=== PATIENT | male | born 1990 | race Caucasian/White ===

== ENCOUNTER 2020-03-01 16:52 | Emergency (ER) | payer OTHER, SELFPAY ==
[2020-03-01 18:31] VITALS: BP 146/80; PULSE 70; RESP 19; TEMP 36.8; O2SAT 100; BMI 30.4
--- NOTE | 2020-03-01 18:38 | HMH.EDUTC ---
[facility] [place]: Acute frontal sinusitis Qualifiers: Recurrence: non-recurrent Qualified Code(s): J01.10 - Acute frontal sinusitis, unspecified Disposition: Home, Self-Care Condition on Discharge: Good Instructions: DI for Sinusitis Additional Instructions: You have been tested for COVID19. Please isolate yourself until test results are received. Prescriptions: predniSONE [Prednisone 20mg Tab] 20 mg PO BID 5 Days #10 tab Transmission Status: [facility] to [facility] Pseudoephedrine HCl [Sudafed 12 Hour 120mg Tab] 1 tab PO BID 10 Days #20 tab Transmission Status: Pending to [facility] Azithromycin [Z-Amaury 250mg Tab*] 250 mg PO UD DOSE PK #6 tab Transmission Status: Pending to [facility] Referrals: Marlo Abdalla MD [Primary Care Provider] - Time of Disposition: 18:43 Medical Decision Making - Kings Inquiry Pt receiving controlled substance: No Vital Signs: 03/01/20 18:31 Temperature 98.3 F Temperature Source Oral Pulse Rate [Right Brachial] 70 Respiratory Rate 19 Blood Pressure [Right Arm] 146/80 H Blood Pressure Mean [Right Arm] 102 Blood Pressure Source [Right Arm] Automatic Cuff Blood Pressure Position [Right Arm] Sitting 02 Sat by Pulse Oximetry 100 Oxygen Delivery Method Room Air [facility] [place] - General Stated complaint: soa, sinuses Time Seen by Provider: 03/01/20 18:39 Mode of Arrival: Ambulatory Source of Information: Patient Limitations: No Limitations Description of Symptoms (Recalled from Triage Doc. by RN): PATIENT CHEST CONGESTION, SOA, AND SINUS PRESSURE X 4 DAYS HEENT Symptoms (Recalled from RN notes): Yes Resp Symptoms (Recalled from RN notes): No Skin Symptoms (Recalled from RN notes): No MS Symptoms (Recalled from RN notes): No Functional Status (Recalled from RN notes): WNL - History of Present Illness Provider Complaint: Chest congestion, SOA, sinus drainage and pressure X 3-4 days. Some nausea, but no vomiting or diarrhea. Some shortness of breath and dizziness. No fever. 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 Onset (ago): day(s) (3) Location: chest Relieving factors: none Exacerbating factors: none Associated symptoms: cough Treatments prior to arrival: none - Related Data Previous Rx's Medication Instructions Recorded Azithromycin [Z-Amaury 250mg Tab*] 250 mg PO UD DOSE PK #6 tab 03/01/20 Pseudoephedrine HCl [Sudafed 12 1 tab PO BID 10 Days #20 tab 03/01/20 Hour 120mg Tab] predniSONE [Prednisone 20mg 20 mg PO BID 5 Days #10 tab 03/01/20 Tab] Allergies Allergy/AdvReac Type Severity Reaction Status Date / Time Penicillins [PENICILLINS] Allergy Mild Unverified 04/27/17 14:49 - Worker's Comp Is this a Worker's Comp case?: No [facility] History - Hepatitis A Screen Drug use history?: No High risk sexual behaviors?: No History of sexually transmitted infection?: No Currently employed?: No Childcare worker?: No Do you have indoor plumbing?: Yes Do you have electricity?: Yes Attestation statement:: This patient has been screened for Hepatitis A risk factors. I have reviewed the patient's past medical history: Yes - Social History Alcohol Intake: never Occupational Status: other ROS Obtained: Yes All systems reviewed & no additional complaints - Constitutional Constitutional: Denies body ache, Denies chills, Denies fever(s), Reports headache(s) - Eyes Eyes: Denies eye discharge - ENT Ears, Nose, Mouth, and Throat: Reports dizziness, Reports otalgia, Reports sinus pain, Reports sore throat - Cardiovascular Cardiovascular: Reports dyspnea - Respiratory Respiratory: Yes cough, Yes dyspnea - Gastrointestinal Gastrointestingal: Reports: nausea Physical Exam - General General appearance: alert, in no apparent distress - Head Head exam: atraumatic, normocephalic, normal inspection - Eye Eye exam: Present: normal appearance, PERRL, EOMI - ENT ENT
[2020-03-01 19:28] VITALS: BP 146/80; PULSE 70; RESP 19; TEMP 36.8; O2SAT 100
== END 2020-03-01 19:30 | disposition home or self-care (01) ==
PROVIDERS: Emergency Provider Physician Assistant; PCP Family Medicine
DX: Z20.828 Contact with and (suspected) exposure to other viral communicable diseases (principal); J01.10 Acute frontal sinusitis, unspecified
CPT/HCPCS: 99201; U0003

== ENCOUNTER 2020-03-20 16:05 | Emergency (ER) | payer OTHER, SELFPAY ==
[2020-03-20 16:15] VITALS: BP 113/52; PULSE 73; RESP 18; TEMP 36.7; O2SAT 99; BMI 30.4
--- NOTE | 2020-03-20 16:23 | HMH.EDUTC ---
[facility] [place] Clinical Impression: Exposure to COVID-19 virus, Abscess of upper back excluding scapular region Disposition: Home, Self-Care Condition on Discharge: Good Instructions: Boil, Preventing the Spread of Coronavirus Discharge Instructions Additional Instructions: Drink plenty of fluids. Take tylenol for pain or fever. Take the medications as directed. Follow up with your regular doctor. GO TO THE ER FOR ANY WORSENING SYMPTOMS Take the antibiotics as directed for the inflamed cyst on your back. I put in a referral to a surgeon to get it removed. You should call his office and get an appointment. Prescriptions: Doxycycline Hyclate [Doxycycline 100mg Capsule] 100 mg PO Q12 10 Days #20 cap Transmission Status: Received by [facility] Referrals: Marlo Abdalla MD [Primary Care Provider] - Alf Jacobson MD [Staff Physician] - Forms: Work/School Release Time of Disposition: 16:41 Medical Decision Making - Medical Records Medical records reviewed: No: I reviewed the patient's medical records. - Kings Inquiry Pt receiving controlled substance: No Vital Signs: 03/20/20 16:15 03/20/20 17:02 Temperature 98.1 F 98.1 F Temperature Source Oral Oral Pulse Rate 73 Pulse Rate [Radial] 73 Respiratory Rate 18 18 Blood Pressure 113/52 L Blood Pressure [Right Arm] 113/52 L Blood Pressure Mean [Right Arm] 72 Blood Pressure Source Automatic Cuff Blood Pressure Source [Right Arm] Automatic Cuff Blood Pressure Position Sitting Blood Pressure Position [Right Arm] Sitting 02 Sat by Pulse Oximetry 99 Oxygen Delivery Method Room Air Room Air Orders (Tests/Meds): ORDERS Category Date Time Status Covid-19 Nasal PCR Sendout [facility] 03/20/20 16:12 Received [facility] [place] - General Stated complaint: WANTS COVID TEST Time Seen by Provider: 03/20/20 16:23 Mode of Arrival: Ambulatory Source of Information: Patient Limitations: No Limitations Description of Symptoms (Recalled from Triage Doc. by RN): COVID test, has a spot on his left shoulder he would like to have checked. HEENT Symptoms (Recalled from RN notes): No Resp Symptoms (Recalled from RN notes): No Skin Symptoms (Recalled from RN notes): Yes MS Symptoms (Recalled from RN notes): No Functional Status (Recalled from RN notes): wnl - History of Present Illness Provider Complaint: He states that he needs to be tested for covid due to being exposed a few days ago. He denies any symptoms at this time. Also, he has recurrent cyst on the back of his left shoulder. It has been there for a long time, but it periodically gets inflamed. It has been swollen and sore around it this time for the past 1 week. - Related Data Previous Rx's Medication Instructions Recorded Azithromycin [Z-Amaury 250mg Tab*] 250 mg PO UD DOSE PK #6 tab 03/01/20 Pseudoephedrine HCl [Sudafed 12 1 tab PO BID 10 Days #20 tab 03/01/20 Hour 120mg Tab] predniSONE [Prednisone 20mg 20 mg PO BID 5 Days #10 tab 03/01/20 Tab] Doxycycline Hyclate [Doxycycline 100 mg PO Q12 10 Days #20 cap 03/20/20 100mg Capsule] Allergies Allergy/AdvReac Type Severity Reaction Status Date / Time Penicillins [PENICILLINS] Allergy Mild Unverified 04/27/17 14:49 - Worker's Comp Is this a Worker's Comp case?: No [facility] History - Hepatitis A Screen Drug use history?: No High risk sexual behaviors?: No History of sexually transmitted infection?: No Currently employed?: No Childcare worker?: No Do you have indoor plumbing?: Yes Do you have electricity?: Yes Attestation statement:: This patient has been screened for Hepatitis A risk factors. I have reviewed the patient's past medical history: Yes - Social History Smoking Status: Current every day smoker Tobacco Type: cigarettes # Packs/Day (cigarettes): 1 Alcohol Intake: never Occupational Status: employed ROS Obtained: Yes All systems reviewed & no additional complaints - Const
[2020-03-20 17:02] VITALS: BP 113/52; PULSE 73; RESP 18; TEMP 36.7; O2SAT 99
[2020-03-22 15:45] LABS: Covid-19 Nasal PCR Sendout Lex Not Detected
== END 2020-03-20 17:03 | disposition home or self-care (01) ==
PROVIDERS: Emergency Provider Nurse Practitioner Family; PCP Family Medicine
DX: Z20.828 Contact with and (suspected) exposure to other viral communicable diseases (principal); L02.212 Cutaneous abscess of back [any part, except buttock and flank]; F17.210 Nicotine dependence, cigarettes, uncomplicated
CPT/HCPCS: 99201; U0004

== ENCOUNTER 2020-04-03 19:00 | Emergency (ER) | payer OTHER, SELFPAY ==
[2020-04-03 19:01] VITALS: BP 139/68; PULSE 95; RESP 16; TEMP 36.7; O2SAT 100; BMI 29.5
--- NOTE | 2020-04-03 19:38 | HMH.EDGENADL ---
ED Disposition Clinical Impression: Abscess of skin or subcutaneous tissue Qualifiers: Site of cutaneous abscess: other site Qualified Code(s): L02.818 - Cutaneous abscess of other sites Disposition: Home, Self-Care Condition on Discharge: Good Instructions: DI for Skin Abscess Additional Instructions: You have been evaluated for an abscess, drained. This is likely an infected sebaceous cyst. You will need to have cyst removed. Please follow-up with general surgery or dermatology as soon as available. Take antibiotics as prescribed. Return to the emergency department if you have any new or worsening symptoms, fevers, vomiting, other concerns. Referrals: Marlo Abdalla MD [Primary Care Provider] - Time of Disposition: 19:44 - Critical Care Critical Care Time: No Attestation: On 04/03/20, the high probability of a clinically significant, sudden or life threatening deterioration of the following system(s) required my full and direct attention, intervention and personal management. The time I documented below is in addition to time spent performing reported procedures but includes the following listed in this critical care notation. Medical Decision Making - Medical Records Medical records reviewed: Yes: I reviewed the patient's medical records. - Kings Inquiry Pt receiving controlled substance: No Vital Signs: 04/03/20 19:01 Temperature 98.1 F Temperature Source Oral Pulse Rate [Left Radial] 95 H Respiratory Rate 16 Blood Pressure [Right Arm] 139/68 Blood Pressure Mean [Right Arm] 91 Blood Pressure Source [Right Arm] Automatic Cuff Blood Pressure Position [Right Arm] Sitting 02 Sat by Pulse Oximetry 100 Oxygen Delivery Method Room Air Orders (Tests/Meds): ED MEDICATIONS Discontinued Medications Generic Name Dose Route Start Last Admin Trade Name Pippa PRN Reason Stop Dose Admin Lidocaine HCl 10 ml 04/03/20 19:11 Lidocaine 1% 10ml Mdv SQ 04/03/20 19:12 ONCE ONE Medical Decision Narrative: In summary this is a previously healthy 29-year-old male presenting to the emergency department with an area of painful swelling medial to his left scapula. Appears consistent with a sebaceous cyst. However there is now pain and erythema and induration, concerning for superimposed infection. Area anesthetized with 1% lidocaine. Aspirated. Removal of 10 cc of purulent material. Incision made at the area of greatest fluctuance, no additional purulence expressed. No loculations found. Patient given Bactrim. He has a prescription at the pharmacy for continued antibiotics. Instructed that he likely has a sebaceous cyst that will need removal. He should follow-up with general surgery or dermatology as soon as available. Given return precautions. Stable for discharge. General Adult HPI - General Chief complaint: Skin/Abscess/Foreign Body Stated complaint: Cyst on back Time Seen by Provider: 04/03/20 19:18 Mode of Arrival: Ambulatory Limitations: No Limitations Description of Symptoms (Recalled from ER Triage Doc. by RN): pt c/o a cyst on his upper back for the last 3 months. pt stated it has gotten more painful since last week. pt was seen in the [facility] and prescribed antibiotics but he has refused to take his medication pt stated i dont like medicine. i just want it cut open. pt denies any fever or chills at this time. - History of Present Illness HPI narrative: 29-year-old male presenting to the emergency department with a painful area of swelling near his left shoulder. Area is located medial to the scapula. It has been present for the last few months. Initially was a painless area of swelling. Over the last week has become swollen, painful. It is painful to the touch. He has pain with arm movement. Was evaluated at our urgent care where he was given a prescription for antibiotics 1 week ago, has been unable to get the prescription filled. No fevers, chills, nausea, vomiting.
[2020-04-03 19:49] VITALS: BP 121/73; PULSE 75; RESP 17; TEMP 36.8; O2SAT 98
== END 2020-04-03 19:58 | disposition home or self-care (01) ==
PROVIDERS: Emergency Provider Emergency Medicine; PCP Family Medicine
DX: L02.212 Cutaneous abscess of back [any part, except buttock and flank] (principal); F17.210 Nicotine dependence, cigarettes, uncomplicated; Z88.0 Allergy status to penicillin
CPT/HCPCS: 10060; 99282

== ENCOUNTER 2020-07-09 14:29 | Emergency (ER) | payer OTHER, SELFPAY ==
[2020-07-09 14:44] VITALS: BP 117/80; PULSE 86; RESP 19; TEMP 37.1; O2SAT 98; BMI 28.0
[2020-07-09 14:55] VITALS: BP 120/86; PULSE 81; RESP 16; TEMP 37.2
--- NOTE | 2020-07-09 15:14 | HMH.EDUTC ---
[facility] [place] Clinical Impression: Sinusitis Qualifiers: Sinusitis location: unspecified location Chronicity: unspecified Qualified Code(s): J32.9 - Chronic sinusitis, unspecified Disposition: Home, Self-Care Condition on Discharge: Good Instructions: Sinusitis, DI for Sinusitis, DI for Nausea -- Adult, DI for COVID-19 (Suspected or Confirmed ), Coronavirus Disease 2019 Additional Instructions: *Monitor Temp, Over the counter Motrin or Tylenol as directed/as needed Tylenol every 4 hours and Motrin every 6 hours (as long as your family doctor has told you that you can take it) for fever or pain. and straight to ER if unable to lower temp less than 101.0 after medication given *Warm salt water gargles may help to soothe the throat *Throat Lozenges *Warm fluids like tea with honey may help to soothe the throat *Sleep elevated *Humidifier/Vaporizer ? Avoid fruit juices, as these do not replace minerals and can actually increase diarrhea. ? Children and adults can use sports drinks to replenish electrolytes. Younger children and infants should use products formulated for children, like oral rehydration solutions. ? Eat food in small amounts and let your stomach recover. ? Get lots of rest. You may feel tired or weak. ? No greasy or fried foods for the next 24-48 hours BRAT diet Bananas Rice Apples and [place] ? Make sure to drink plenty of liquids ? Return if needed ? Straight to ER if any life threatening symptoms ? Zofran as prescribed ? Follow up with family doctor in the next 48-72 hours if no improvement or any worsening of symptoms Follow up IMMEDIATELY for new or worsening symptoms or no Noticeable improvement over the next 48-72 hours. 911 for difficulty breathing or swallowing You were tested for today for COVID19 your test result should be back in the next 24-48 hours, you may call to the [facility] to see if your test results are back in the next 48 hours [phone] [facility] hours are 9am-9pm You was given a handout with instructions for Self Quarantine and Self isolation for while you wait on test results and what to do if they are positive If you are positive the Health Dept will be contacting you also Prescriptions: Doxycycline Monohydrate [Doxycycline [place] 100mg Tab] 100 mg PO Q12 7 Days #14 tab Transmission Status: [facility] to [facility] Ondansetron [Zofran 4mg ODT] 4 mg PO TIDP PRN #10 tab PRN Reason: Nausea Transmission Status: [facility] Referrals: Marlo Abdalla MD [Primary Care Provider] - As needed Forms: Work/School Release Time of Disposition: 15:19 Medical Decision Making - Kings Inquiry Pt receiving controlled substance: No Kings was queried for this patient: No Vital Signs: 07/09/20 14:44 07/09/20 14:55 Temperature 98.8 F 99 F Temperature Source Oral Pulse Rate 81 Pulse Rate [Right] 86 Respiratory Rate 19 16 Blood Pressure 120/86 Blood Pressure [Right Arm] 117/80 Blood Pressure Mean [Right Arm] 92 Blood Pressure Source [Right Arm] Automatic Cuff Blood Pressure Position [Right Arm] Sitting 02 Sat by Pulse Oximetry 98 Oxygen Delivery Method Room Air Orders (Tests/Meds): ORDERS Category Date Time Status Covid-19 Nasal PCR ([facility]) Routine Lab 07/09/20 14:41 Received [facility] [place]PI - General Stated complaint: Nausea; previous fever Time Seen by Provider: 07/09/20 15:14 Mode of Arrival: Ambulatory Source of Information: Patient Limitations: No Limitations Description of Symptoms (Recalled from Triage Doc. by RN): pt has been nauseated for three days and febrile yesterday. HEENT Symptoms (Recalled from RN notes): No Resp Symptoms (Recalled from RN notes): No Skin Symptoms (Recalled from RN notes): No MS Symptoms (Recalled from RN notes): No Functional Status (Recalled from RN notes): na - History of Present Illness Provider Complaint: Patient states that he has been having sinus pain and pressure along with fever and nausea for severa
== END 2020-07-09 15:30 | disposition home or self-care (01) ==
PROVIDERS: Emergency Provider Nurse Practitioner; PCP Family Medicine
DX: Z20.822 Contact with and (suspected) exposure to COVID-19 (principal); J32.9 Chronic sinusitis, unspecified; F17.210 Nicotine dependence, cigarettes, uncomplicated; Z88.0 Allergy status to penicillin
CPT/HCPCS: 99202; G0463; U0003

== ENCOUNTER 2020-08-31 05:03 | Emergency (ER) | payer OTHER, SELFPAY ==
[2020-08-31 05:04] VITALS: BP 147/82; PULSE 84; RESP 16; TEMP 36.6; O2SAT 97; BMI 28.0
--- NOTE | 2020-08-31 05:38 | HMH.EDMCLR ---
ED Disposition Clinical Impression: Medical clearance for incarceration Disposition: Home, Self-Care Condition on Discharge: Good Instructions: DI for Alcohol Use Disorder Additional Instructions: call pcp for follow up Referrals: Marlo Abdalla MD [Primary Care Provider] - - Critical Care Critical Care Time: No Attestation: On 08/31/20, the high probability of a clinically significant, sudden or life threatening deterioration of the following system(s) required my full and direct attention, intervention and personal management. The time I documented below is in addition to time spent performing reported procedures but includes the following listed in this critical care notation. Medical Decision Making - Medical Records Medical records reviewed: Yes: I reviewed the patient's medical records. - Kings Inquiry Pt receiving controlled substance: No Vital Signs: 08/31/20 05:04 Temperature 97.9 F Temperature Source Oral Pulse Rate [Left Radial] 84 Respiratory Rate 16 Blood Pressure [Right Arm] 147/82 H Blood Pressure Mean [Right Arm] 103 Blood Pressure Source [Right Arm] Automatic Cuff Blood Pressure Position [Right Arm] Sitting 02 Sat by Pulse Oximetry 97 Oxygen Delivery Method Room Air Medical Clearance HPI - General Chief complaint: Medical Clearance Stated complaint: Medical Clearance Time Seen by Provider: 08/31/20 05:10 Mode of Arrival: Ambulatory Source of Information: Patient, Medical Record Limitations: No Limitations Description of Symptoms (Recalled from ER Triage Doc. by RN): Medical clearance for alcohol intoxication. Pt has no complaints reported to staff. Lab notified of request for blood draw. - History of Present Illness HPI Narrative: pt w/o specific c/o MD complaint: medical clearance requested Onset (ago): hour(s) Reason for Medical Clearance: intoxication Place: street Alleged Intoxication: Yes Traumatic Symptoms: denies traumatic injury Associated Symptoms: denies other symptoms Treatments Prior to Arrival: none Home medications: Home Medications Medication Instructions Recorded Confirmed No Known Home Medications 08/31/20 08/31/20 Allergies/Adverse reactions: Allergies Allergy/AdvReac Type Severity Reaction Status Date / Time Penicillins [PENICILLINS] Allergy Mild Verified 07/09/20 14:49 [facility] History - Hepatitis A Screen Drug use history?: No High risk sexual behaviors?: No History of sexually transmitted infection?: No Currently employed?: No Childcare worker?: No Do you have indoor plumbing?: Yes Do you have electricity?: Yes Attestation statement:: This patient has been screened for Hepatitis A risk factors. I have reviewed the patient's past medical history: Yes - Social History Smoking Status: Current every day smoker Tobacco Type: cigarettes # Packs/Day (cigarettes): 1 Alcohol Intake: never Occupational Status: employed ROS Obtained: Yes All systems reviewed & no additional complaints - Constitutional Constitutional: Denies fever(s) - Eyes Eyes: Denies change in vision - ENT Ears, Nose, Mouth, and Throat: Denies sore throat - Cardiovascular Cardiovascular: Denies chest pain - Respiratory Respiratory: Denies shortness of breath - Gastrointestinal Gastrointestingal: Denies: abdominal pain - Genitourinary Male Genitourinary: Denies flank pain - Musculoskeletal Musculoskeletal: Denies joint pain - Integumentary/Breasts Skin/Breast: Denies rash - Neurologic Neurologic: Denies focal weakness Physical Exam - General General appearance: alert - Head Head exam: normocephalic - Eye Eye exam: Present: PERRL, EOMI - ENT ENT exam: Present: mucous membranes moist - Neck Neck exam: Present: trachea midline - Respiratory Respiratory exam: Absent: respiratory distress - Cardiovascular Cardiovascular exam: Present: regular rate - Abdominal Exam Abdominal exam: Present: soft - Extremitie
[2020-08-31 05:50] VITALS: BP 135/83; PULSE 82; RESP 16; TEMP 36.6; O2SAT 99
== END 2020-08-31 05:51 | disposition home or self-care (01) ==
PROVIDERS: Emergency Provider Emergency Medicine; PCP Family Medicine
DX: F10.10 Alcohol abuse, uncomplicated (principal); F17.210 Nicotine dependence, cigarettes, uncomplicated; Z88.0 Allergy status to penicillin
CPT/HCPCS: 36415; 99282

== ENCOUNTER 2020-10-20 10:39 | Emergency (ER) | payer OTHER, SELFPAY ==
[2020-10-20 10:40] VITALS: BP 119/75; PULSE 78; RESP 19; TEMP 36.8; O2SAT 99; BMI 26.7
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
--- NOTE | 2020-10-20 11:47 | HMH.EDUTC ---
[facility] [place] Clinical Impression: Ankle sprain Qualifiers: Encounter type: initial encounter Involved ligament of ankle: other ligament Laterality: right Qualified Code(s): S93.491A - Sprain of other ligament of right ankle, initial encounter Disposition: Home, Self-Care Condition on Discharge: Good Instructions: How to Use Crutches, DI for Ankle Sprain, How To Perform RICE (Rest, Ice, Compress, Elevate), Ketorolac Additional Instructions: *No weight bearing RICE, Rest the extremity, Ice 15-20 minutes 3-4 times daily, Compress- wear the roberto wrap as discussed as much as possible to help reduce swelling and pain, Elevate the extremity when at rest *Walking boot is for support and help control swelling, Be sure that is not to tight but not to loose either Use Crutches to ambulate and move around *Elevate when resting *Torodol as prescribed for pain and inflamation NO IBUPROFEN with Torodol If need something more can take Tylenol in between doses of Ibuprofen to help Immediately follow up with your family doctor for new or worsening of symptoms, or no noticeable improvement over the next 3-5 days Call Orthopedic office on Wednesday for appointment with Dr Steven Straight to ER if any numbness or tingling in foot or feeling cold to the touch or any life threatening symptoms Prescriptions: Ketorolac Tromethamine [Toradol 10mg tablet] 10 mg PO Q6HP PRN #20 tab MDD 40mg/day PRN Reason: Moderate Pain Transmission Status: Received by [id number] Referrals: Marlo Abdalla MD [Primary Care Provider] - As needed Toribio Seaman MD [Staff Physician] - As needed (Call office tomorrow Morning for appoinment Dr Steven covering) Time of Disposition: 18:10 Medical Decision Making - Kings Inquiry Pt receiving controlled substance: No Kings was queried for this patient: No Vital Signs: 10/20/20 10:40 10/20/20 12:41 Temperature 98.3 F 98.3 F Temperature Source Oral Pulse Rate 78 Pulse Rate [Right Brachial] 78 Respiratory Rate 19 19 Blood Pressure 119/75 Blood Pressure [Right Arm] 119/75 Blood Pressure Mean [Right Arm] 89 Blood Pressure Source [Right Arm] Automatic Cuff Blood Pressure Position [Right Arm] Sitting 02 Sat by Pulse Oximetry 99 Oxygen Delivery Method Room Air Orders (Tests/Meds): ED MEDICATIONS Discontinued Medications Generic Name Dose Route Start Last Admin Trade Name Pippa PRN Reason Stop Dose Admin Ketorolac Tromethamine 60 mg 10/20/20 12:28 10/20/20 12:33 Ketorolac 60mg/2ml Vial IM 10/20/20 12:29 60 mg ONCE ONE Administration - Radiology Data #1 Image(s): Ankle Image Reviewed: Yes I reviewed the patient's radiology image soft tissue swelling no acute fracture #2 Image(s): Tib/Fib Image Reviewed: Yes I reviewed the patient's radiology image Soft tissue swelling no acute fracture - Physician Consults Physician Consulted: Dr Steven Time: 12:08 Reason -: Orthopedic Eval/Care Comment/Response: Spoke with Dr Steven and he viewed xrays Advised to place in walking boot RICE, Crutches and call office on Wednesday for appointment [facility] [place] - General Stated complaint: AO [id number] rolled ankle Time Seen by Provider: 10/20/20 11:47 Mode of Arrival: Ambulatory Source of Information: Patient Limitations: No Limitations Description of Symptoms (Recalled from Triage Doc. by RN): PATIENT STATES HE STEPPED OFF OF A CURB WRONG AND ROLLED HIS RIGHT ANKLE THIS MORNING AT APPROX 0900 HEENT Symptoms (Recalled from RN notes): No Resp Symptoms (Recalled from RN notes): No Skin Symptoms (Recalled from RN notes): No MS Symptoms (Recalled from RN notes): Yes Functional Status (Recalled from RN notes): WNL - History of Present Illness Provider Complaint: Patient states that he was walking and stepped off curb and rolled right ankle and right lower leg State that ever since he has been having swelling and pain in his right ankle and lower leg. - Related Da
[2020-10-20 12:41] VITALS: BP 119/75; PULSE 78; RESP 19; TEMP 36.8; O2SAT 99
== END 2020-10-20 12:55 | disposition home or self-care (01) ==
PROVIDERS: Emergency Provider Nurse Practitioner; PCP Family Medicine
DX: S93.491A Sprain of other ligament of right ankle, initial encounter (principal); X50.1XXA Overexertion from prolonged static or awkward postures, initial encounter; Y92.480 Sidewalk as the place of occurrence of the external cause; F17.210 Nicotine dependence, cigarettes, uncomplicated
CPT/HCPCS: 29515; 73590; 73610; 99202; G0463

== ENCOUNTER 2020-10-21 11:33 | Emergency (ER) | payer OTHER, SELFPAY ==
[2020-10-21 11:35] VITALS: BP 141/63; PULSE 69; RESP 18; TEMP 36.7; O2SAT 99; BMI 26.7
--- NOTE | 2020-10-21 12:10 | HMH.EDUTC ---
[facility] – [place] Dis[place] Clinical Impression: Right foot pain Disposition: Home, Self-Care Condition on Discharge: Serious Instructions: DI for Foot Fracture Additional Instructions: Rest the extremity, apply ice for 15 minutes as tolerated three or four times per day, Wear the roberto wrap for compression, Elevate the extremity as tolerated while you are resting. Take the medication that was prescribed yesterday for your pain. Follow up with Dr. Seaman (orthopedics) as already ordered. Follow up with your regular doctor. GO TO THE ER FOR ANY WORSENING SYMPTOMS Referrals: Marlo Abdalla MD [Primary Care Provider] - Time of Disposition: 12:19 Medical Decision Making - Medical Records Medical records reviewed: No: I reviewed the patient's medical records. - Kings Inquiry Pt receiving controlled substance: No Vital Signs: 10/21/20 11:35 10/21/20 12:16 Temperature 98.0 F 98.0 F Temperature Source Oral Pulse Rate 69 Pulse Rate [Left Brachial] 69 Respiratory Rate 18 18 Blood Pressure 141/63 H Blood Pressure [Left Arm] 141/63 H Blood Pressure Mean [Left Arm] 89 Blood Pressure Source [Left Arm] Automatic Cuff Blood Pressure Position [Left Arm] Sitting 02 Sat by Pulse Oximetry 99 Oxygen Delivery Method Room Air Orders (Tests/Meds): ED MEDICATIONS Discontinued Medications Generic Name Dose Route Start Last Admin Trade Name Pippa PRN Reason Stop Dose Admin Ketorolac Tromethamine 60 mg 10/21/20 12:10 10/21/20 12:14 Ketorolac 60mg/2ml Vial IM 10/21/20 12:11 60 mg ONCE ONE Administration [facility] [place] HPI - General Stated complaint: AO [id number] fall pain in foot Time Seen by Provider: 10/21/20 11:45 Mode of Arrival: Ambulatory Source of Information: Patient Limitations: No Limitations Description of Symptoms (Recalled from Triage Doc. by RN): PATIENT WAS SEEN IN [facility] YESTERDAY FOR INJURY TO RIGHT FOOT. HE STATES HE WOKE UP THIS MORNING AND STEPPED ON RIGHT FOOT WRONG AND FEEL. REQUESTING TORADOL SHOT HEENT Symptoms (Recalled from RN notes): No Resp Symptoms (Recalled from RN notes): No Skin Symptoms (Recalled from RN notes): No MS Symptoms (Recalled from RN notes): Yes Functional Status (Recalled from RN notes): WNL - History of Present Illness Provider Complaint: He originally injured his right foot yesterday. But, today when he got out of bed he forgot it was hurt, so he bore weight on it and now its hurting worse. He has not picked up his prescribed medication for pain from his pharmacy. He would like another shot of toradol now, then be allowed to go get his medication. - Related Data Previous Rx's Medication Instructions Recorded Ketorolac Tromethamine [Toradol 10 mg PO Q6HP PRN #20 tab MDD 10/20/20 10mg tablet] 40mg/day Allergies Allergy/AdvReac Type Severity Reaction Status Date / Time Penicillins [PENICILLINS] Allergy Mild Verified 07/09/20 14:49 - Worker's Comp Is this a Worker's Comp case?: No [facility] History - Hepatitis A Screen Drug use history?: No High risk sexual behaviors?: No History of sexually transmitted infection?: No Currently employed?: No Childcare worker?: No Do you have indoor plumbing?: Yes Do you have electricity?: Yes Attestation statement:: This patient has been screened for Hepatitis A risk factors. I have reviewed the patient's past medical history: Yes - Social History Smoking Status: Current every day smoker Tobacco Type: cigarettes # Packs/Day (cigarettes): 1 Alcohol Intake: never Occupational Status: other ROS Obtained: Yes All systems reviewed & no additional complaints - Constitutional Constitutional: Denies chills, Denies fever(s) - Musculoskeletal Musculoskeletal: Reports as per HPI - Integumentary/Breasts Skin/Breast: Denies redness, Denies rash, Denies wounds - Neurologic Neurologic: Denies tingling/numbness/burning sensations Physical Exam - General General appearance: alert, in no appare
[2020-10-21 12:16] VITALS: BP 141/63; PULSE 69; RESP 18; TEMP 36.7; O2SAT 99
== END 2020-10-21 12:22 | disposition home or self-care (01) ==
PROVIDERS: Emergency Provider Nurse Practitioner Family; PCP Family Medicine
DX: M79.671 Pain in right foot (principal); W01.0XXA Fall on same level from slipping, tripping and stumbling without subsequent striking against object, initial encounter; Y92.009 Unspecified place in unspecified non-institutional (private) residence as the place of occurrence of the external cause; F17.210 Nicotine dependence, cigarettes, uncomplicated
CPT/HCPCS: 96372; 99202; G0463

== ENCOUNTER 2021-06-24 18:31 | Emergency (ER) | payer OTHER, SELFPAY ==
[2021-06-24 18:35] VITALS: BP 129/70; PULSE 89; RESP 18; TEMP 37.1; O2SAT 99; BMI 26.2
--- NOTE | 2021-06-24 18:55 | HMH.EDUTC ---
[facility] [place] Clinical Impression: Encounter for laboratory testing for COVID-19 virus, Viral syndrome Disposition: Home, Self-Care Condition on Discharge: Good Instructions: DI for COVID-19 (Suspected or Confirmed ), Preventing the Spread of Coronavirus Discharge Instructions Additional Instructions: *Monitor Temp, Over the counter Motrin or Tylenol as directed/as needed Tylenol every 4 hours and Motrin every 6 hours (as long as your family doctor has told you that you can take it) for fever or pain. and straight to ER if unable to lower temp less than 101.0 after medication given *Warm salt water gargles may help to soothe the throat *Throat Lozenges *Warm fluids like tea with honey may help to soothe the throat *Sleep elevated *Humidifier/Vaporizer Follow up IMMEDIATELY for new or worsening symptoms or no Noticeable improvement over the next 48-72 hours. 911 for difficulty breathing or swallowing You were tested for today for COVID19 your test result should be back in the next 24-48 hours, you may check your results on the [facility] [employer] health Portal if you have trouble logging on or seeing your results you may call support If you are positive someone from the hospital will be calling you Make sure to take your Vitamins Vit. C Vit D and Zinc if you can take them Referrals: Marlo Abdalla MD [Primary Care Provider] - As needed Time of Disposition: 18:59 Medical Decision Making - Kings Inquiry Pt receiving controlled substance: No Kings was queried for this patient: No Vital Signs: 06/24/21 18:35 Temperature 98.8 F Temperature Source Oral Pulse Rate [Right Brachial] 89 Respiratory Rate 18 Blood Pressure [Right Arm] 129/70 Blood Pressure Mean [Right Arm] 89 Blood Pressure Source [Right Arm] Automatic Cuff Blood Pressure Position [Right Arm] Sitting 02 Sat by Pulse Oximetry 99 Oxygen Delivery Method Room Air Orders (Tests/Meds): ORDERS Category Date Time Status Covid-19 Nasal PCR ([facility]) Routine Lab 06/24/21 18:46 Ordered [facility] [place] [facility] [place] - General Stated complaint: covid test Time Seen by Provider: 06/24/21 18:55 Mode of Arrival: Ambulatory Source of Information: Patient Limitations: No Limitations Description of Symptoms (Recalled from Triage Doc. by RN): PATIENT REQUESTING COVID TEST; STATES HE HAD A LITTLE COLD THIS MORNING BUT IS FEELING BETTER HEENT Symptoms (Recalled from RN notes): No Resp Symptoms (Recalled from RN notes): No Skin Symptoms (Recalled from RN notes): No MS Symptoms (Recalled from RN notes): No Functional Status (Recalled from RN notes): WNL - History of Present Illness Provider Complaint: Patient states that he lives with elderly family member and he woke up this morning having nasal congestion and body aches States that he took some Tylenol and sit by the fire and he felt better States that family wanted him to come get tested where he is around elderly family member so he came in - Related Data Previous Rx's Medication Instructions Recorded Ketorolac Tromethamine [Toradol 10 mg PO Q6HP PRN #20 tab MDD 10/20/20 10mg tablet] 40mg/day Allergies Allergy/AdvReac Type Severity Reaction Status Date / Time Penicillins [PENICILLINS] Allergy Mild Verified 07/09/20 14:49 - Worker's Comp Is this a Worker's Comp case?: No [facility] History - Hepatitis A Screen Drug use history?: No High risk sexual behaviors?: No History of sexually transmitted infection?: No Currently employed?: No Childcare worker?: No Do you have indoor plumbing?: Yes Do you have electricity?: Yes Attestation statement:: This patient has been screened for Hepatitis A risk factors. I have reviewed the patient's past medical history: Yes - Social History Smoking Status: Current every day smoker Tobacco Type: cigarettes # Packs/Day (cigarettes): 1 Alcohol Intake: never Occupational Status: other ROS Obtained: Yes All systems reviewed & no additional complaints, Yes Systems reviewed as
[2021-06-24 19:01] VITALS: BP 129/70; PULSE 89; RESP 18; TEMP 37.1; O2SAT 99
== END 2021-06-24 19:02 | disposition home or self-care (01) ==
PROVIDERS: Emergency Provider Nurse Practitioner; PCP Family Medicine
DX: B34.9 Viral infection, unspecified (principal); U07.1 COVID-19; F17.210 Nicotine dependence, cigarettes, uncomplicated
CPT/HCPCS: 99202; C9803; G0463; U0003; U0005

== ENCOUNTER 2021-09-05 17:26 | Emergency (ER) | payer OTHER, SELFPAY ==
[2021-09-05 17:30] VITALS: BP 136/78; PULSE 69; RESP 16; TEMP 36.8; O2SAT 97; BMI 26.7
[2021-09-05 17:45] VITALS: BP 136/78; PULSE 69; RESP 16; TEMP 36.8; O2SAT 97
--- NOTE | 2021-09-05 17:49 | HMH.EDUTC ---
[facility] [place]ression: Nausea vomiting and diarrhea Disposition: Home, Self-Care Condition on Discharge: Good Instructions: Nausea and Vomiting-Adult, Diarrhea Additional Instructions: Drink extra fluids with and between meals. If you have difficulty drinking, try very small amounts of water or suck on ice chips. ? Avoid fruit juices, as these do not replace minerals and can actually increase diarrhea. ? Children and adults can use sports drinks to replenish electrolytes. Younger children and infants should use products formulated for children, like oral rehydration solutions. ? Eat food in small amounts and let your stomach recover. ? Get lots of rest. You may feel tired or weak. ? No greasy or fried foods for the next 24-48 hours BRAT diet Bananas Rice Apples and [place] ? Make sure to drink plenty of liquids ? Return if needed ? Straight to ER if any life threatening symptoms ? Zofran as prescribed ? Follow up with family doctor in the next 48-72 hours if no improvement or any worsening of symptoms Prescriptions: Ondansetron [Zofran 4mg ODT] 4 mg PO TIDP PRN #9 tab PRN Reason: Nausea Transmission Status: Pending to [id number] Referrals: Radha Gonzalez APRN [Primary Care Provider] - As needed Forms: Work/School Release Time of Disposition: 17:53 Medical Decision Making - Kings Inquiry Pt receiving controlled substance: No Kings was queried for this patient: No Vital Signs: 09/05/21 17:30 09/05/21 17:45 Temperature 98.3 F 98.3 F Temperature Source Oral Pulse Rate 69 Pulse Rate [Right Brachial] 69 Respiratory Rate 16 16 Blood Pressure 136/78 Blood Pressure [Right Arm] 136/78 Blood Pressure Mean [Right Arm] 97 Blood Pressure Source [Right Arm] Automatic Cuff Blood Pressure Position [Right Arm] Sitting 02 Sat by Pulse Oximetry 97 Oxygen Delivery Method Room Air [facility] [place]PI - General Stated complaint: nausea Time Seen by Provider: 09/05/21 17:49 Mode of Arrival: Ambulatory Source of Information: Patient Limitations: No Limitations Description of Symptoms (Recalled from Triage Doc. by RN): PATIENT C/O NAUSEA, VOMITING, AND DIARRHEA SINCE YESTERDAY HEENT Symptoms (Recalled from RN notes): No Resp Symptoms (Recalled from RN notes): No Skin Symptoms (Recalled from RN notes): No MS Symptoms (Recalled from RN notes): No Functional Status (Recalled from RN notes): WNL - History of Present Illness Provider Complaint: Patient states that he started having N/V/D yesterday at work and had to leave States that he continued having vomiting and diarrhea all night States that last time he vomited was earlier this morning and last episode of diarrhea about 4 hours ago but still having nausea states that he thinks he may have eat something that made him sick but feeling a little better now - Related Data Previous Rx's Medication Instructions Recorded Ketorolac Tromethamine [Toradol 10 mg PO Q6HP PRN #20 tab MDD 10/20/20 10mg tablet] 40mg/day Ondansetron [Zofran 4mg ODT] 4 mg PO TIDP PRN #9 tab 09/05/21 Allergies Allergy/AdvReac Type Severity Reaction Status Date / Time Penicillins [PENICILLINS] Allergy Mild Verified 07/09/20 14:49 - Worker's Comp Is this a Worker's Comp case?: No [facility] History - Hepatitis A Screen Attestation statement:: This patient has been screened for Hepatitis A risk factors. I have reviewed the patient's past medical history: Yes - Social History Smoking Status: Current every day smoker Tobacco Type: cigarettes # Packs/Day (cigarettes): 1 Alcohol Intake: never Occupational Status: other ROS Obtained: Yes All systems reviewed & no additional complaints, Yes Systems reviewed as appropriate & no additional complaints - Constitutional Constitutional: Reports system reviewed and no additional complaints, except as docu, Denies body ache, Denies chills, Denies fever(s) - ENT Ears, Nose, Mouth, and Throat: Reports syst
== END 2021-09-05 17:50 | disposition home or self-care (01) ==
PROVIDERS: Emergency Provider Nurse Practitioner Family; PCP Nurse Practitioner Family
DX: R11.2 Nausea with vomiting, unspecified (principal); R19.7 Diarrhea, unspecified; Z88.0 Allergy status to penicillin; F17.210 Nicotine dependence, cigarettes, uncomplicated
CPT/HCPCS: 99212; G0463

== ENCOUNTER 2021-09-17 16:31 | Emergency (ER) | payer OTHER, SELFPAY ==
--- NOTE | 2021-09-17 16:35 | XR_ITS ---
PROCEDURE INFORMATION: Exam: XR Lumbosacral Spine Exam date and time: 09/17/2021 4:39 PM Age: 30 years old Clinical indication: Low back pain; Additional info: Injury TECHNIQUE: Imaging protocol: XR of the lumbosacral spine. Views: 2 or 3 views. COMPARISON: No relevant prior studies available. FINDINGS: Bones/joints: Normal. No acute fracture. Normal alignment. Soft tissues: Unremarkable. IMPRESSION: No acute findings.
[2021-09-17 17:03] VITALS: BP 124/53; PULSE 64; RESP 19; TEMP 37.1; O2SAT 98; BMI 26.7
--- NOTE | 2021-09-17 17:50 | HMH.EDUTC ---
[facility] [place] Dis[place] Clinical Impression: Viral syndrome Low back pain Qualifiers: Chronicity: acute Back pain laterality: midline Sciatica presence: without sciatica Qualified Code(s): M54.50 - Low back pain, unspecified Disposition: Home, Self-Care Condition on Discharge: Good Instructions: Low Back Pain, DI for Low Back Pain Additional Instructions: Go home and rest. It would be best if you rested tomorrow too. No heavy lifting. No twisting. Take the oral medications as directed. The muscle relaxer (cyclobenzaprine--Flexeril) will make you drowsy, so don't drive or operate heavy machinery after taking it. Don't start the oral steroids (medrol dose pack) until tomorrow, since you had the shots in here today. Follow up with your regular doctor. GO TO THE ER FOR ANY WORSENING SYMPTOMS OR CONCERN, ESPECIALLY BOWEL OR BLADDER ISSUES, SADDLE AREA NUMBNESS, FEVER, ETC Prescriptions: Cyclobenzaprine HCl [Cyclobenzaprine 10mg Tab] 10 mg PO BIDP PRN #20 tab PRN Reason: Muscle Spasm Transmission Status: Received by [id number] methylPREDNISolone [Medrol] 4 mg PO DIRECTED 6 Days #21 packet Transmission Status: Received by [id number] Referrals: Radha Gonzalez APRN [Primary Care Provider] - Forms: Work/School Release Time of Disposition: 17:55 Medical Decision Making - Medical Records Medical records reviewed: No: I reviewed the patient's medical records. - Kings Inquiry Pt receiving controlled substance: No Vital Signs: 09/17/21 17:03 09/17/21 18:03 Temperature 98.8 F 98.8 F Temperature Source Oral Pulse Rate 64 Pulse Rate [Radial] 64 Respiratory Rate 19 19 Blood Pressure 124/53 L Blood Pressure [Right Arm] 124/53 L Blood Pressure Mean [Right Arm] 76 02 Sat by Pulse Oximetry 98 Orders (Tests/Meds): ED MEDICATIONS Discontinued Medications Generic Name Dose Route Start Last Admin Trade Name Freq PRN Reason Stop Dose Admin Ketorolac Tromethamine 60 mg 09/17/21 17:32 09/17/21 17:45 Ketorolac 60mg/2ml Vial IM 09/17/21 17:33 60 mg ONCE ONE Administration Methylprednisolone Sodium Succinate 125 mg 09/17/21 17:32 09/17/21 17:45 Methylprednisolone Sod Succ 125mg Vial IM 09/17/21 17:33 125 mg ONCE ONE Administration [facility] [place] HPI - General Stated complaint: lower back pain Time Seen by Provider: 09/17/21 17:05 Mode of Arrival: Ambulatory Limitations: No Limitations Description of Symptoms (Recalled from Triage Doc. by RN): pt here to get xray of back because while he was playing basketball he tripped fell and rolled over onto his back HEENT Symptoms (Recalled from RN notes): No Resp Symptoms (Recalled from RN notes): No Skin Symptoms (Recalled from RN notes): No MS Symptoms (Recalled from RN notes): Yes Functional Status (Recalled from RN notes): wnl - History of Present Illness Provider Complaint: He states that he played basketball very hard 3 days ago. Since then he has had low back pain. - Related Data Previous Rx's Medication Instructions Recorded Ketorolac Tromethamine [Toradol 10 mg PO Q6HP PRN #20 tab MDD 10/20/20 10mg tablet] 40mg/day Ondansetron [Zofran 4mg ODT] 4 mg PO TIDP PRN #9 tab 09/05/21 Cyclobenzaprine HCl 10 mg PO BIDP PRN #20 tab 09/17/21 [Cyclobenzaprine 10mg Tab] methylPREDNISolone [Medrol] 4 mg PO DIRECTED 6 Days #21 09/17/21 packet Allergies Allergy/AdvReac Type Severity Reaction Status Date / Time Penicillins [PENICILLINS] Allergy Mild Verified 09/17/21 17:06 - Worker's Comp Is this a Worker's Comp case?: No [facility] History - Hepatitis A Screen Attestation statement:: This patient has been screened for Hepatitis A risk factors. I have reviewed the patient's past medical history: Yes - Social History Smoking Status: Current every day smoker Tobacco Type: cigarettes # Packs/Day (cigarettes): 1 Alcohol Intake: never Occupational Status: other ROS Obtained:
[2021-09-17 18:03] VITALS: BP 124/53; PULSE 64; RESP 19; TEMP 37.1
== END 2021-09-17 18:04 | disposition home or self-care (01) ==
PROVIDERS: Emergency Provider Nurse Practitioner Family; PCP Nurse Practitioner Family
DX: M54.50 Low back pain, unspecified (principal); B34.9 Viral infection, unspecified; F17.210 Nicotine dependence, cigarettes, uncomplicated; W01.0XXA Fall on same level from slipping, tripping and stumbling without subsequent striking against object, initial encounter; Y93.67 Activity, basketball
CPT/HCPCS: 72100; 96372; 99213; G0463